=== PATIENT | male | born 1955 | race Caucasian/White ===

== ENCOUNTER 2020-05-19 14:54 | Inpatient (IN) | payer MEDICARE ==
[2020-05-19] MEDS ORDERED: FLOMAX0.4 MG PO (15:06)
[2020-05-19] MEDS ORDERED: MAG-OX 400 MG400 MG PO (15:06)
[2020-05-19] MEDS ORDERED: ASPIRIN81 MG PO (15:06)
[2020-05-19] MEDS ORDERED: TRAZODONE HCL50 MG PO (15:07)
[2020-05-19] MEDS ORDERED: PRAVACHOL40 MG PO (15:07)
[2020-05-19] MEDS ORDERED: POTASSIUM CHLO10 ME1 PO (15:08)
[2020-05-19] MEDS ORDERED: COZAAR100 MG PO (15:09)
[2020-05-19] MEDS ORDERED: HCTZ25 MG PO (15:09)
[2020-05-19] MEDS ORDERED: NORVASC10 MG PO (15:10)
[2020-05-19] MEDS ORDERED: NEURONTIN600 MG PO (15:11)
[2020-05-19] MEDS ORDERED: MOBIC7.5 MG PO (15:12)
[2020-05-19] MEDS ORDERED: PACERONE200 MG PO (15:12)
[2020-05-19] MEDS ORDERED: HYDRALAZINE HC100 MG PO (15:18)
[2020-05-19 15:53] VITALS: BP 152/92; BMI 44.4
[2020-05-19 17:30] LABS: BASOPHILS 0.9 % (0-2); EOSINOPHILS 5.3 % (0-7); HEMATOCRIT 42.1 % (42.0-54.0); HEMOGLOBIN 14.6 g/dL (13.5-17.5); IMMATURE GRANULOCYTES 0.3 % (0-5); LYMPHOCYTE ABS# 2.44 10x3/uL (1.32-3.57); LYMPHOCYTES 36.9 % (15-50); MCH 34.7 pg (26.0-34.0); MCHC 34.7 g/dL (31.0-37.0); MONOCYTES 13.7 % (2-11); NEUTROPHIL ABS# 2.84 10x3/uL (1.78-5.38); NEUTROPHILS 42.9 % (40-80); PLATELET COUNT 298 10x3/uL (130-400); RBC 4.21 10x6/uL (4.20-6.10); RDW 15.4 % (11.5-14.5); WBC 6.6 10x3/uL (4.8-10.8)
[2020-05-19 18:26] LABS: ALBUMIN 3.4 g/dL (3.4-5.0); ALKALINE PHOSPHATASE 110 U/L (30-120); ALT (SGPT) 63 U/L (10-68); BILIRUBIN - TOTAL 0.77 mg/dL (0.2-1.3); CALC OSMOLALITY 271 mosm/kg (275-300); CALCIUM 8.4 mg/dL (8.5-10.1); CHLORIDE - SERUM 103 mmol/L (98-107); CHOL - HDL RATIO 4.1 ratio (2.3-4.9); CHOLESTEROL, TOTAL 231 mg/dL (0-200); CREATININE - SERUM 0.7 mg/dL (0.6-1.3); GLUCOSE 72 mg/dL (74-106); HDL CHOLESTEROL 56 mg/dL (32-96); LDL CHOLESTEROL 157 mg/dL (0-100); LDL-HDL RATIO 2.8 ratio (1.5-3.5); POTASSIUM - SERUM 3.2 mmol/L (3.5-5.1); PROTEIN - SERUM 7.6 g/dL (6.4-8.2); SODIUM 138 mmol/L (136-145); THYROID STIMULATING HORMONE 0.75 uIU/mL (0.36-3.74); TRIGLYCERIDE 94 mg/dL (30-200); UREA NITROGEN 4 mg/dL (7-18); eGFR NON AFRICAN AMERICAN > 90 mL/min (90-120)
[2020-05-19 19:30] LABS: BILIRUBIN NEGATIVE (NEGATIVE); KETONE NEGATIVE (NEGATIVE); NITRITE NEGATIVE (NEGATIVE); UROBILINOGEN NORMAL mg/dL (< 2)
[2020-05-19 19:39] LABS: SQUAMOUS EPITHELIAL 0-5 HPF (0-4); WHITE CELLS - URINE 0-5 HPF (0-1)
[2020-05-19 19:40] LABS: BACTERIA FEW HPF (NONE SEEN)
--- NOTE | 2020-05-19 19:40 | NUR ---
NEW ADMIT TO DR SALTER ON [facility] FOR SUICIDAL IDEATION FROM [facility]. TRANSPORTED TO [facility] BY HIS NEPHEW, PRICILLA MEDRANO. UPON ARRIVAL TO [facility], PATIENT WAS COMPLIANT WITH ADMISSION ASSESSMENTS. CONSENTS TO TREAT SIGNED BY PATIENT, SARITHA MARCELA. CODE STATUS DISCUSSED WITH PATIENT AND HE IS A FULL CODE. PASSCODE GIVEN TO PATIENT. PATIENT STATES TO GIVE PASSCODE TO HIS NEPHEW AND SONS WHEN THEY CALL. PATIENT ORIENTED TO ROOM, UNIT, AND CALL [facility] SYSTEM.
[2020-05-19 20:00] VITALS: BP 135/87
[2020-05-19 20:13] LABS: UDS - AMPHET NEGATIVE QUAL (NEGATIVE); UDS - BARB NEGATIVE QUAL (NEGATIVE); UDS - BENZO NEGATIVE QUAL (NEGATIVE); UDS - COCAINE NEGATIVE QUAL (NEGATIVE); UDS - OPIATE NEGATIVE QUAL (NEGATIVE); UDS - PCP NEGATIVE QUAL (NEGATIVE); UDS - THC NEGATIVE QUAL (NEGATIVE)
--- NOTE | 2020-05-19 20:46 | NUR ---
RECEIVED IN HALLWAY OUTSIDE OF NURSES STATION. SOCIAL AT TIMES. CALM AND COOPERATIVE WITH CARE AND ASSESSMENT. NO STATEMENTS OF SELF HARM VOICED. STATE HE HAS A FAMILY AND GRANDCHILDREN HE NEEDS TO KEEP LIVING FOR. ENCOURAGE TO EXPRESS NEEDS. RESTING QUIETLY IN HIS ROOM AT THIS TIME. CONTINUE PLAN OF CARE.
--- NOTE | 2020-05-20 08:14 | PSY ---
PATIENT NAME:SARITHA MEDRANO MEDICAL RECORD: [id number] : 53 LOCATION:[id number] ADMISSION DATE: 05/19/20 ACCOUNT: [id number] PSYCHIATRIC EVALUATION DATE OF EVALUATION: 05/19/20 IDENTIFYING DATA: The patient is 65 years old and admitted to the hospital on a voluntary basis. CHIEF COMPLAINT: Suicidal ideation. HISTORY OF PRESENT ILLNESS: The patient is an alcoholic. He drinks at least 15 cans of beer a day along with several bottles of wine. He has done this for many years. When he gets drunk, he often feels tearful and suicidal. He says that the suicidal statements he made recently were because he was drunk and he is not drunk now and does not feel suicidal. He endorses numerous depressive symptoms. He denies that he would seek to harm himself or others and is wanting medical detoxification. PAST MEDICAL HISTORY: Significant for obstructive sleep apnea, COPD, hypertension and congestive heart failure. PAST PSYCHIATRIC HISTORY: Unclear. The patient says that he is on disability and has been on disability because he had a "nervous breakdown." Trying to elicit what might be the diagnosis is difficult, but it does sound as though he has had some serious psychiatric problems in the past. 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 He says that his building maintenance supervisor told him to falsify the quality of the welds and that if he did not do so that they are going to have him killed and his family killed. All of this is certainly not outside the realm of what is possible, but the manner in which he is talking about this sounds frankly at least in part delusional. He was hospitalized after this incident and tells me that he was on medications, but does not feel that he needs them anymore. FAMILY HISTORY: Unknown. ALLERGIES: SEROQUEL. CURRENT MEDICATIONS: Include potassium, hydrochlorothiazide, Mobic, aspirin, Cozaar, Norvasc, Flomax, folate, Desyrel, Neurontin, alprazolam, Pravachol, Cordarone, Librium and Nicoderm. SOCIAL HISTORY: The patient is single. He does have adult children and he is . He denies any legal entanglements. 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 As mentioned above, he drinks and smokes excessively and is currently smoking and 1-1/2 packages of cigarettes a day despite the fact that he has COPD, is morbidly obese and uses a CPAP machine. MENTAL STATUS EXAMINATION: The patient is awake, alert, oriented to person and place and somewhat to situation. He is mistaken about the date, but only moderately so. He believes that it is Monday, the May. His mood is euthymic. His affect appropriate. Thought processes are circumstantial. Memory, concentration and abstraction abilities are intact and he denies that he would seek to harm himself or others as well as psychotic symptoms. ASSESSMENT: AXIS I: Alcohol dependence. Rule out major depression. AXIS II: Deferred. AXIS III: Morbid obesity, chronic obstructive pulmonary disease, obstructive sleep apnea, benign prostatic hypertrophy, hyperlipidemia, hypertension, coronary artery disease, congestive heart failure. AXIS IV: Moderate. AXIS V: Global assessment of functioning is 45. PLAN: At this time, the patient is admitted to the hospital secondary to suicidal thoughts associated with substance use disorder. He will be medically detoxed, observed for depressive symptoms and started on antidepressant medication. His long-term prognosis is guarded and further investigation into his psychiatric history is necessary. Having an ALLERGY TO SEROQUEL is curious as Seroquel is not typically prescribed except for those with thought disorders or some sort of behavior problem. There is a great deal of information that needs to be gathered to put all of these pieces together, but at this time, I am going to watch him for alcohol withdrawal, start him on Librium and a transdermal Habitrol patch at his request. He states flatly he has no interest in stopping smoking despite his many health problems. TRANSINT:[id number] Voice Confirmation ID: [id number] DOCUMENT ID: [id number] BALDEMAR SALTER MD at 0814 CC: [id number] DICTATION DATE: 05/19/20 170 ACUTE SPECIALIST: 05/19/20 1720 ADM IN [facility] [address] [place] [address]
[2020-05-20 10:45] VITALS: BP 143/78
[2020-05-20 13:32] VITALS: Wt 131.1 kg
--- NOTE | 2020-05-20 17:54 | NUR ---
Rec'd patient this am sitting up in room. He is med compliant and takes his meds whole. He is A/O times 3 to person, place, and situation. He participated in group/activities today but sat to side of the group and listened and watched the activities. He has been calm, quiet, and cooperative with staff and other patients. His eyes are very reddened and he has edema to his feet and ankles. He denies any threats or ideations to suicide. He says he is here for his alcohol abuse. He has not displayed any adverse reactions is no alcohol usage.
[2020-05-20 20:00] VITALS: BP 123/72
--- NOTE | 2020-05-20 22:15 | NUR ---
RECEIVED PATIENT ON UNIT. SITTING CALMLY WITH HIS MASK ON. DENIES SUICIDIAL IDEATIONS. NO SIGNS OR SYMPTOMS OF ALCOHOL DETOX. HE IS ABLE TO MAKE ALL OF HIS NEEDS KNOWN. WILL FOLLOW POC
[2020-05-21 06:54] LABS: CALC OSMOLALITY 269 mosm/kg (275-300); CARBON DIOXIDE 29.8 mmol/L (21.0-32.0); CHLORIDE - SERUM 102 mmol/L (98-107); CREATININE - SERUM 0.6 mg/dL (0.6-1.3); GLUCOSE 96 mg/dL (74-106); POTASSIUM - SERUM 3.1 mmol/L (3.5-5.1); SODIUM 136 mmol/L (136-145); UREA NITROGEN 8 mg/dL (7-18); eGFR NON AFRICAN AMERICAN > 90 mL/min (90-120)
[2020-05-21 07:16] LABS: RAPID PLASMA REAGIN Non Reactive (Non Reactive)
--- NOTE | 2020-05-21 16:01 | PN ---
PATIENT:SARITHA MEDRANO MEDICAL RECORD: [id number] LOCATION:[facility] ADMISSION DATE: 05/19/20 PROGRESS NOTE DATE OF SERVICE: 05/20/2020 SUBJECTIVE: The patient's case was discussed with staff. He has no new complaint. OBJECTIVE: The patient is in good behavioral control. He is not showing evidence of alcohol withdrawal. ASSESSMENT: Major depression. PLAN: The patient's Librium is going to be reduced. I will continue to reduce it until it is discontinued and if he does not show withdrawal symptoms, he can be discharged. TRANSINT:[id number] Voice Confirmation ID: [id number] DOCUMENT ID: [id number] BALDEMAR SALTER MD at 1601 CC: [id number] DICTATION DATE: 05/20/20 1648 METAL RIVETER: 05/20/20 2332 ADM IN [facility] [address] [place] [id number]
--- NOTE | 2020-05-21 18:09 | NUR ---
Rec'd patient this am ambulatory in [facility]. He is A/O times [address], and situation. He denies any feeling for alcohol or denies side effects of Librium. He participated in group therapy today and was very active. He is med compliant.He denies any Suicidal ideations or thoughts.
[2020-05-21 20:00] VITALS: BP 124/76
--- NOTE | 2020-05-22 00:51 | NUR ---
B) Patient is alert and oriented to person, place and time, calm and cooperative, helpful with other patients, I) Administered scheduled medications as ordered, assisted with needs, R) Mediaction compliant, pleasnat and friendly, P) Continue plan of care,
[2020-05-22 07:24] LABS: CALC OSMOLALITY 266 mosm/kg (275-300); CALCIUM 9.3 mg/dL (8.5-10.1); CARBON DIOXIDE 27.6 mmol/L (21.0-32.0); CHLORIDE - SERUM 99 mmol/L (98-107); CREATININE - SERUM 0.7 mg/dL (0.6-1.3); GLUCOSE 96 mg/dL (74-106); SODIUM 134 mmol/L (136-145); UREA NITROGEN 9 mg/dL (7-18); eGFR NON AFRICAN AMERICAN > 90 mL/min (90-120)
[2020-05-22 07:27] LABS: POTASSIUM - SERUM 3.7 mmol/L (3.5-5.1)
[2020-05-22 09:10] VITALS: BP 123/65
[2020-05-22 10:55] VITALS: BP 123/85
--- NOTE | 2020-05-22 13:32 | NUR ---
Nutrition Follow-up: Diet: Regular PO intake: 100% x last 6 meals Last BM: 05/21/20. Wt: 283# (05/20/20) Meds noted: micro-k, magox, HCTZ Labs noted: Na 134(L) Recommend continue current diet. RD will follow-up 05/27/20.
--- NOTE | 2020-05-22 17:28 | NUR ---
RECEIVED THIS AM AMBULATORY IN [facility].IS ORIENTED X 3.VERY FRIENDLY,ENJOYS SOCIALIZING WITH STAFF AND PEERS.COMPLIANT WITH STAFF AND MEDS.DENIES SUICIDAL THOUGHTS.STATES"I NEVER THINK OF THAT UNLESS I AM VERY DRUNK."WILL CONTINUE WITH CURRENT PLAN OF CARE,MONITOR FOR CHANGES AND SAFETY.
[2020-05-22 20:00] VITALS: BP 103/67
--- NOTE | 2020-05-22 22:34 | NUR ---
PT IS ALERT AND ORIENTED X4. RECEIVED OUTSIDE THE NURSES STATION USING A WALKER TO ASSIST WITH AMBULATION. SOCIALIZING WITH STAFF AND PEERS. DENIES ANY SI. CALM AND COOPERATIVE. COMPLIANT WITH ALL MEDICATIONS. EASY TO REDIRECT.
[2020-05-23 07:38] VITALS: BP 102/67
--- NOTE | 2020-05-23 11:04 | NUR ---
The patient is awke and he is very talkative this am, he has been provided a recliner to ealevate his legs, the nurses, and nurse practitioner have explained to him that he needs to elevate his legs, but he will not elevate them and they continue to be swollen especially the left leg and foot. He asked about cheking himself out, but explained to him that since he came in with SI he is not able and our director social is trying to find counseling services for him so that he can have adequate resources at hand when he discharges. he verbalizes understanding and he is ok with the decision at this time. Provide prescribed meds. The patient is compliant with meds. He is becoming tired of sitting here and has asked to go smoke, but the hospital policy was explained to him and he said he understands. He is pleasant, but he wants to talk and tries to flirt a little by saying "How all of the nurses are so pretty." Provide prescribed meds. The patient is compliant with meds. Continue POC.
--- NOTE | 2020-05-23 17:53 | NUR ---
Patient denies any thoughts of suicide ideations
[2020-05-23 20:00] VITALS: BP 103/56
--- NOTE | 2020-05-23 21:38 | NUR ---
PT IS ALERT AND ORIENTED X4. RECEIVED IN THE HALLWAY OUTSIDE NURSES STATION SOCIALIZING WITH PEERS AND STAFF. COOPERATIVE WITH STAFF. ABLE TO VOICE NEEDS AND WANTS. DENIES SI. AMBULATES WITH A WALKER. MONITOR FOR SAFETY.
[2020-05-24 08:39] VITALS: BP 106/55
--- NOTE | 2020-05-24 17:03 | NUR ---
RECEIVED IN HALLWAY OUTSIDE OF NURSES STATION. SOCIALIZING WITH STAFF AND PEERS. CALM AND COOPERATIVE WITH CARE AND ASSESSMENT. DENIES SUICIDAL IDEATION. REDIRECT AND REORIENT NEEDED. EATING DINNER AT THIS TIME. CONTINUE PLAN OF CARE.
--- NOTE | 2020-05-24 20:26 | NUR ---
RECEIVED IN HALLWAY STANDING AT NURSES STAION TALKING TO STAFF AND PEERS. CALM AND COOPERATIVE WITH CARE AND ASSESSMENT. NO STATEMENTS OF SELF HARM VOICED. ENCOURAGE TO EXPRESS NEEDS. CONTINUES TO BE SOCIAL WITH STAFF AND PEERS. CONTINUE PLAN OF CARE.
--- NOTE | 2020-05-24 20:30 | NUR ---
RECEIVED IN BEDROOM. RESTING IN BED WITH EYES OPEN. CALM AND COOPERATIVE WITH CARE AND ASSESSMENT. NO STATEMENTS OF SELF HARM VOICED THIS EVENING. ENCOURAGE TO EXPRESS NEEDS. CONTINUES TO REST QUIETLY IN BED. CONTINUE PLAN OF CARE.
[2020-05-24 21:31] VITALS: BP 112/64
[2020-05-25 13:53] LABS: CALC OSMOLALITY 268 mosm/kg (275-300); CALCIUM 9.7 mg/dL (8.5-10.1); CARBON DIOXIDE 32.9 mmol/L (21.0-32.0); CHLORIDE - SERUM 96 mmol/L (98-107); POTASSIUM - SERUM 4.7 mmol/L (3.5-5.1); SODIUM 132 mmol/L (136-145); UREA NITROGEN 15 mg/dL (7-18); eGFR NON AFRICAN AMERICAN 79 mL/min (90-120)
[2020-05-25 13:54] LABS: GLUCOSE 152 mg/dL (74-106)
--- NOTE | 2020-05-25 17:30 | NUR ---
RECEIVED IN PATIENT ROOM. CALM AND COOPERATIVE WITH CARE AND ASSESSMENT. DENIES SUICIDAL IDEATION. REDIRECT AND REORIENT NEEDED. EATING DINNER AT THIS TIME. CONTINUE PLAN OF CARE.
--- NOTE | 2020-05-25 21:12 | NUR ---
RECEIVED IN HALLWAY. SITTING WITH PEERS SOCIALIZING. CALM AND COOPERATIVE WITH CARE AND ASSESSMENT. NO STATEMENTS OF SELF HARM VOICED. ENCOURAGE TO EXPRESS NEEDS. CONTINUES TO SOCAILIZE WITH PEERS. CONTINUE PLAN OF CARE.
[2020-05-25 22:28] VITALS: BP 104/62
[2020-05-26 08:00] VITALS: BP 97/55
--- NOTE | 2020-05-26 11:21 | NUR ---
mold loft worker spoke to patient's son, Rodri, to discuss discharge planning needs in patient's condition. Rodri wants patient to attend a residential alcohol treatment program. Patient does not want to go to a residential care program. mold loft worker explained that patient is his own person. mold loft worker also stated the discharge planning developing to support patient on an outpatient basis. Rodri was not content with outpatient discharge planning. mold loft worker then had an individual session with patient. mold loft worker explained that he was denied by to inpatient residential programs due to health reasons. mold loft worker sent referrals to [facility] in [place] and they are reviewing patient's file. [facility] does accept patient's insurance. Patient was pleased to know there was an outpatient service close to his home. mold loft worker also went over the importance of AA meetings and suggested 90 meetings in 90 days. Patient agreed to these terms. During individual session patient demonstrated anxiety and agitation. Patient did settle down after reviewing coping skills with social security specialist. mold loft worker will continue discharge planning per patient's request for outpatient.
--- NOTE | 2020-05-26 11:37 | NUR ---
RECEIVED IN PATIENT ROOM. SITTING ON SIDE OF BED. CALM AND COOPERATIVE WITH CARE AND ASSESSMENT. DENIES SUICIDAL IDEATION. REDIRECT AND REORIENT NEEDED. EATING LUNCH AT THIS TIME. CONTINUE PLAN OF CARE.
--- NOTE | 2020-05-26 20:01 | NUR ---
RECEIVEDIN HALLWAY. SITTING IN A CHAIR SOCIALIZING WITH PEERS. CALM AND COOPERATIVE WITH CARE AND ASSESSMENT. NO STATEMENTS OF SELF HARM VOICED. ENCOURAGE TO EXPRESS NEEDS. CONITUES TO SOCAILIZE WITH PEERS. CONTINUE PLAN OF CARE.
[2020-05-26 21:38] VITALS: BP 117/69
[2020-05-27 09:36] VITALS: BP 150/66
--- NOTE | 2020-05-27 11:18 | NUR ---
Patient stopped this nurse in the hallway and said "I need to make a phone call". I reinforced to him that there is a certain time for patient calls. He stated "well, I thought you might just let me" and I stated No, thats always been the time for calls. Patient then stated " well, when it stops raining, I'm gona go out and get me some firewood and build a fire out there" "that really was a joke" and laughed.
--- NOTE | 2020-05-27 12:10 | NUR ---
Nutrition Re-Assessment Diet: Regular PO intake: 100% Last BM: 05/26/20 Wt: 280.4# (05/24/20); Admit Wt: 283# (05/19/20) Meds noted: micro-k, magox, HCTZ Labs noted: Na 132(L), Glu 152(H) Estimated nutrition needs and nutrition diagnosis remain unchanged from initial nutrition assessment at this time. Patient is meeting nutrition goals at this time. Recommendations/Interventions: -Continue current diet. -RD will follow-up within 7 days.
--- NOTE | 2020-05-27 13:06 | NUR ---
Patient attempts again today to exchange food off of his plate to another patients. He was again reminded that exchanging of food was allowed.
--- NOTE | 2020-05-27 17:42 | NUR ---
Received patient sitting in hallway by the nurses station socializing with other peers. Calm and cooperative with assessment and care at this time. Awake and alert x4. Prescribed medications provided as ordered. Med compliant. Patient denies suicidal ideation at this time. Will continue plan of care.
[2020-05-27 19:30] VITALS: BP 103/64
--- NOTE | 2020-05-28 02:21 | NUR ---
B)RECEIVED PATIENT SITTING IN THE HALLWAY SOCIALIZING WITH PEERS. ALERT AND ORIENTED X4. RELATES IS HERE BECAUSE OF ALCOHOL. RELATES HE IS NOT GOING TO ANOTHER FACILITY FROM HERE UNTIL HIS GRAND BABY IS BORN BECAUSE HE TOLD HIS SON HE WOULD BE THERE FOR THE . DOES ADMIT TO HAVING A DRINKING PROBLEM. CALM AND COOPERATIVE WITH UNIT MILIEU. I)ADMINISTER MEDS AND MONITOR COMPLIANCE. OBTAIN VERBAL NO HARM CONTRACT. R)MED COMPLIANT. CONTRACTS VERBALLY FOR NO SELF. DENIES SI RELATING WHEN HE GETS TO DRINKING HE SOMETIMES WILL SAY THINGS HE DOESN'T MEAN. P)CONTINUE POC AND PROVIDE SAFE ENVIRONMENT.
[2020-05-28 06:22] LABS: CALC OSMOLALITY 269 mosm/kg (275-300); CALCIUM 9.5 mg/dL (8.5-10.1); CARBON DIOXIDE 31.2 mmol/L (21.0-32.0); CHLORIDE - SERUM 99 mmol/L (98-107); CREATININE - SERUM 0.9 mg/dL (0.6-1.3); GLUCOSE 121 mg/dL (74-106); POTASSIUM - SERUM 4.5 mmol/L (3.5-5.1); SODIUM 134 mmol/L (136-145); UREA NITROGEN 15 mg/dL (7-18); eGFR NON AFRICAN AMERICAN 90 mL/min (90-120)
[2020-05-28 08:15] VITALS: BP 111/65
--- NOTE | 2020-05-28 14:44 | NUR ---
pt notified nurse that he was having black stools all week long. nurse to report to dr. sorto.
--- NOTE | 2020-05-28 18:20 | NUR ---
PT PLAYING CHECKERS AT THIS TIME. PT IS COMPLIANT WITH MEDS, VITALS AND ASSESSMENTS. AMBUALTES WITH WALKER. DENIES SI. WILL CONT PLAN OF CARE.
[2020-05-28 20:00] VITALS: BP 116/61
--- NOTE | 2020-05-29 00:24 | NUR ---
PT IS ALERT AND ORIENTED X4. HE IS RECEIVED IN THE HALLWAY OUTSIDE THE NURSES STATION SOCIALIZING WITH PEERS. COMPLIANT WITH ALL MEDICATIONS. DENIES SI. RELATES THAT HE WOULD LIKE TO DO AN INPATIENT TREATMENT FACILITY BUT WANTS TO MAKE SURE THAT HE CAN LEAVE VOLUNTARILY. EASY TO REDIRECT. MONITOR FOR SAFETY.
[2020-05-29 09:30] VITALS: BP 104/65
--- NOTE | 2020-05-29 14:54 | NUR ---
ALERT, CALM, COOPERATIVE, DENIES S.I., PLEASANT MOOD, MEDS ADMIN PER ORDERS WITH COMPLETE MED COMPLIANCE NOTED. CONTINUE PLAN OF CARE OUTLINED.
--- NOTE | 2020-05-29 23:27 | NUR ---
RECEIVED PATIENT IN HALLWAY USING HIS PHONE TIME. HE IS PLEASANT, COOPERATIVE, FOLLOWS UNIT RULES. COMPLIANT WITH MEDS. NO ALCOHOL WITHDRAWL NOTED. DENIES SUICIDIAL IDEATIONS. WILL FOLLOW POC
[2020-05-30 00:03] VITALS: BP 149/59
[2020-05-30 09:11] VITALS: BP 119/66
--- NOTE | 2020-05-30 13:50 | NUR ---
At approx. 1340 staff heard a thump coming out of this patients room. The staff opened the door to find patient lying on the floor horizonally to the room with his head at the bathroom door and his feet at the side of the bed. He was lying on his back. The bedroom floor and the bathroom floor was wet with urine and patients clothes were also wet. There was a large amount of toliet tissue wet on the bathroom floor. Patients walker was next to patients head. I ask him what happened and he stated he had went to the bathroom and turned the shower on hot to make him some "hot tea" then "I guess the water leaked out of the shower and got the floor wet so I put all that toliet paper on the floor to soak up the water..."well, urine" and I guess my feet were wet and I just went down". Patient assessment completed. He denies any new pain.Skin w/d with all skin intact without open areas or bruises noted. No internal rotation to lower extremeties. Full ROM to upper and lower extremeties. He says his right hip is "sore" but when nurse applied pressure, patient did not respond as in pain. Encouraged patient to not run any water in shower unless a staff member is supervising and reminded him of emergency light in room. Also encouraged patient to wear non skid socks at all times when OOB and ambulating.
--- NOTE | 2020-05-30 18:05 | NUR ---
Rec'd patient this am up in a w/c sitting by the nurses desk. He is a/o times 3 to person, place, and situation. He is med compliant and takes meds whole. He attended social with the other patients and did very well with the other patients. He fell earilar but still does not have any pain or bruising. Dr. Shankar presents and orders rec'd for stools for occult blood. He denies any suicidal self harm or ideations today. HIs eyes are alot less reddened due to new eye drop usage. He has bessy. lower ext. edema. He is ambulatory for short walks using the rolling walker.There has been no alcohol withdrawal symtoms at this date.
[2020-05-30 20:00] VITALS: BP 103/55; BP 138/62
--- NOTE | 2020-05-30 22:13 | NUR ---
RECEIVED PATIENT IN THE HALLWAY, HE IS PLEASANT AND ABLE TO MAKE ALL OF HIS NEEDS KNOWN. HE IS NOT HAVING ANY WITHDRAWLS AT THIS TIME. HE DENIES SUICIDIAL IDEATIONS. WILL FOLLOW POC
[2020-05-31 09:53] VITALS: BP 100/52
--- NOTE | 2020-05-31 11:40 | NUR ---
RECEIVED PATIENT SENT IN THE HALLWAY BY THE NURSES STATION STATION. CALM AND COOPERATIVE WITH ASSESSMENT AT THIS TIME. PATIENT DENIES SUICIDAL IDEATION AT THIS TIME. PATIENT'S MOOD IS PLEASANT. PRESCRIBED MEDICATIONS PROVIDED ORDERED MED COMPLIANT. REDIRECT AND REORIENT NEEDED. WILL CONTINUE PLAN OF CARE.
--- NOTE | 2020-05-31 21:13 | NUR ---
RECEIVED PATIENT IN [place] SOCIALIZING WITH PEERS, HE SEEMS TO BECOMING INCREASINGLY CONFUSED, HE CAN NOT COMPREHEND OR REMEMBER TO USE THE CALL DAVIES EVEN AFTER BEING TOLD MULTIPLE TIMES, AND TO CALL FOR HIS EVERY NEED AND HE STILL REMAINS TO GET UP AND ATTEMPTS TO DO FOR HIMSELF. HE HAS BEEN GIVEN A URINAL, HE HAS NON-SKID SOCKS ON AND A CALL DAVIES WITHIN REACH. WILL FOLLOW POC
[2020-05-31 21:29] VITALS: BP 108/69
[2020-06-01 11:59] VITALS: BP 100/50
--- NOTE | 2020-06-01 12:00 | PN ---
PATIENT:SARITHA MEDRANO MEDICAL RECORD: [id number] LOCATION:[facility] ADMISSION DATE: 05/19/20 PROGRESS NOTE DATE OF SERVICE: 05/21/2020 The patient is 65 years old. He is admitted because of alcoholism and some suicidal statements. He no longer has any thoughts of harming himself. His vital signs have been good. I am going to reduce his Librium by one-third and will observe him for withdrawal. I would anticipate he could likely be transitioned to a lower level of care once medically detoxified and if things go well that should not take more than a few days. TRANSINT:[id number] Voice Confirmation ID: [id number] DOCUMENT ID: [id number] BALDEMAR SALTER MD at 1200 CC: [id number] DICTATION DATE: 05/21/20 172 CAR RETARDER OPERATOR: 05/21/203 ADM IN [place] [id number] [place] [address]
--- NOTE | 2020-06-01 15:58 | NUR ---
RECEIVED PATIENT SITTING IN CHAIR BY NURSES STATION. PATIENT IS SOCIALIZING WITH OTHER PEERS IN HALLWAY BY NURSES STATION. CALM AND COOPERATIVE WITH ASSESSMENT AT THIS TIME. PATIENT IS AWAKE AND ALERT X2. PATIENT'S CONFUSION LEVEL APPEARS TO BE INCREASED AT THIS TIME. PRESCRIBED MEDICATIONS PROVIDED ORDERED. MED COMPLIANT. REDIRECT AND REORIENT NEEDED. FALL PRECAUTIONS IN PLACE FOR SAFETY. WILL CONTINUE PLAN OF CARE.
[2020-06-01 22:10] VITALS: BP 120/69
--- NOTE | 2020-06-01 23:51 | NUR ---
PT IS ALERT AND ORIENTED SELF AND SITUATION. HE KNOWS HE IS IN A [facility]YCH UNIT BUT [facility]. HE RELATES THAT HIS POOPS ARENT BLACK ANYMORE. PLACED COLLECTION DEVICE IN TOILET AND EDUCATED HIM THAT WE NEED 3 STOOL SAMPLES. HE DOES ADMIT THAT HE HAS BEEN MORE CONFUSED LATELY. COMPLIANT WITH ALL MEDICATIONS. EASY TO REDIRECT.
[2020-06-02 08:00] VITALS: BP 101/52
--- NOTE | 2020-06-02 12:08 | NUR ---
RECEIVED PATIENT IN HALLWAY SOCIALIZING WITH PEERS. AWAKE AND ALERT X2 AT THIS TIME. CALM AND COOPERATIVE WITH ASSESSMENT AT THIS TIME. PRESCRIBED MEDICATIONS PROVIDED ORDERED. MED COMPLIANT. NO BEHAVIORS NOTED AT THIS TIME. REDIRECT AND REORIENT NEEDED. FALL PRECAUTIONS IN PLACE FOR SAFETY. WILL CONTINUE PLAN OF CARE.
--- NOTE | 2020-06-02 15:24 | PN ---
PATIENT:SARITHA MEDRANO MEDICAL RECORD: [id number] LOCATION:[facility] ADMISSION DATE: 05/19/20 PROGRESS NOTE DATE OF SERVICE: 06/01/2020 SUBJECTIVE: The patient's case was discussed with staff. He has no new complaint. OBJECTIVE: The patient denies intent to harm himself or others. He has had some alcohol withdrawal symptoms with the discontinuation of his Librium, but that seems to have resolved. ASSESSMENT: No change in diagnosis. PLAN: Current medicines have been reviewed and I anticipate he can be discharged soon. TRANSINT:[id number] Voice Confirmation ID: [id number] DOCUMENT ID: [id number] BALDEMAR SALTER MD at 1524 CC: [id number] DICTATION DATE: 06/01/20 165 ACADEMIC SUPPORT DIRECTOR: 06/02/20 0104 ADM IN [facility] [address] [place] [id number]
[2020-06-02 17:20] LABS: BASOPHILS 0.4 % (0-2); HEMATOCRIT 41.7 % (42.0-54.0); HEMOGLOBIN 13.8 g/dL (13.5-17.5); IMMATURE GRANULOCYTES 0.5 % (0-5); LYMPHOCYTE ABS# 2.83 10x3/uL (1.32-3.57); LYMPHOCYTES 26.6 % (15-50); MCH 34.2 pg (26.0-34.0); MCHC 33.1 g/dL (31.0-37.0); MCV 103.5 fL (80.0-100.0); MEAN PLATELET VOLUME 9.2 fL (7.4-10.4); NEUTROPHIL ABS# 5.26 10x3/uL (1.78-5.38); NEUTROPHILS 49.5 % (40-80); RBC 4.03 10x6/uL (4.20-6.10); RDW 14.2 % (11.5-14.5); WBC 10.6 10x3/uL (4.8-10.8)
[2020-06-02 17:24] LABS: CALC OSMOLALITY 272 mosm/kg (275-300); CALCIUM 9.8 mg/dL (8.5-10.1); CARBON DIOXIDE 29.4 mmol/L (21.0-32.0); CHLORIDE - SERUM 100 mmol/L (98-107); CREATININE - SERUM 0.8 mg/dL (0.6-1.3); GLUCOSE 121 mg/dL (74-106); POTASSIUM - SERUM 4.6 mmol/L (3.5-5.1); SODIUM 136 mmol/L (136-145); UREA NITROGEN 13 mg/dL (7-18); eGFR NON AFRICAN AMERICAN > 90 mL/min (90-120)
[2020-06-02 17:26] LABS: PLATELET COUNT 381 10x3/uL (130-400)
[2020-06-02 20:16] VITALS: BP 110/62
--- NOTE | 2020-06-02 22:00 | NUR ---
PATIENT RECEIVED SITTING IN CHAIR IN HALLWAY. PATIENT IS ALERT AND ORIENTED TO SELF AND SITUATION. CALM AND COOPERATIVE WITH ASSESSMENT. PATIENT IS COMPLIANT WITH MEDICATIONS. REDIRECT NEEDED. HE IS CONFUSED AT TIMES. REDIRECTS WITHOUT DIFFICULTY. MONITOR FOR SAFETY AND FOLLOW POC.
[2020-06-03 08:00] VITALS: BP 126/63
--- NOTE | 2020-06-03 09:54 | NUR ---
STAFF MEMBERS NOTED DURING ROUNDS PT TURNED OFF BED ALARM AND REMOVED BATTERIES. STAFF EDUCATED 2X ON IMPORTANCE ON BED ALARM AND NEED FOR BED ALARM TO PREVENT FALLS. PT VOICED UNDERSTANDING AT THIS TIME. CONTINUE TO MONITOR FALL PRECAUTIONS.
--- NOTE | 2020-06-03 15:18 | PN ---
PATIENT:SARITHA MEDRANO MEDICAL RECORD: [id number] LOCATION:[facility] ADMISSION DATE: 05/19/20 PROGRESS NOTE DATE OF SERVICE: 06/02/2020 SUBJECTIVE: The patient's case was discussed with staff. He has no new complaint. OBJECTIVE: The patient has no tremor today. He unfortunately is having some incontinence of bowel and bladder for reasons that are unclear. I am going to order some baseline labs to investigate. TRANSINT:[id number] Voice Confirmation ID: [id number] DOCUMENT ID: [id number] BALDEMAR SALTER MD at 1518 CC: [id number] DICTATION DATE: 06/02/20 1605 SHOPFITTER: 06/02/20 2327 ADM IN [place] [id number] [place] [address]
--- NOTE | 2020-06-03 15:49 | NUR ---
Nutrition Re-Assesssment Diet: Regular PO intake: 100% x all Last BM: 05/30/20 Wt: 281# (05/31/20); Admit Wt: 283# (05/19/20) Meds noted: micro-k, magox, HCTZ Labs noted: Glu 121(H) Estimated nutrition needs and nutrition diagnosis remain unchanged from initial nutrition assessment at this time. Patient is currently meeting nutrition goals at this time. Recommendations/Interventions: -Recommend continue current diet. Will continue to honor food preferences within diet restrictions. -RD will follow-up within 7 days.
--- NOTE | 2020-06-03 16:17 | NUR ---
nurse spoke with Jose Carrie in regards to d/c planning. nurse stated Dr. Dozier was allowing pt to D/C on 06/04/20. Nurse inquired if he wanted to set up a pickup time for 06/04. Mr. Butler "well i would have to drop of my kid at school and then come up with the gas money you know what I'm saying?" Nurse clarfied he would have to drop his child off then head this way. he stated yeah yall been saying everyday it would tomorrow i need to know for sure he is leaving cause i don't know what time i'll be there tomorrow. Just have him ready when i get there." Nurse stated she would clarfiy with the doctor but to call in the AM to let staff know when he is on the way." he did verbalize understanding.
[2020-06-03] MEDS ORDERED: WELLBUTRIN XL150 M1 PO (16:27)
[2020-06-03] MEDS ORDERED: VITAMIN D PO (16:27)
[2020-06-03] MEDS ORDERED: DONEPEZIL HCL5 MG PO (16:27)
[2020-06-03] MEDS ORDERED: AKWA TEARS15 ML EACH EYE (16:27)
[2020-06-03] MEDS ORDERED: FOLIC ACID1 MG PO (16:28)
--- NOTE | 2020-06-03 17:57 | NUR ---
Rec'd this am ambulationing in hallway using a walker. He is doing well. He takes his meds whole and is compliant. He most of the time is able to be directed or redirected. He is displaying a little Dementia signs. He can become a little agitated at times but can be redirected easily. He denies any suicidal ideations and self harm. One stool sample (2nd sample) obtained for occult blood taken to lab. He attended group therapy/activity today and participated with the group. He had one incontinent episode today.
[2020-06-03 20:00] VITALS: BP 102/53
--- NOTE | 2020-06-03 22:09 | NUR ---
RECEIVED PATIENT IN HIS ROOM THEN HE WALKED INTO THE HALLWAY AND SOCIALIZED WITH PEERS, ATE HIS SNACKS, HE IS PLEASANT, DENIES SUICIDIAL IDEATIONS. NO ALCOHOL WITHDRAWAL NOTED. WILL FOLLOW POC
[2020-06-04 08:54] VITALS: BP 98/53
--- NOTE | 2020-06-04 09:50 | NUR ---
PATIENT SITTING SOCIALZING WITH PEERS AT THIS TIME. PT IS CALM AND COOPERATIVE WITH STAFF AND PEERS. PT IS COMPLIANT WITH MEDS, VITALS AND ASSESSMENTS. PT IS ALERT TO PERSON, PLACE. PT IS D/C TO HOME WITH FAMILY THIS SHIFT. CONTS TO USE WALKER FOR AMBULATION. REDIRECT AND REORIENT NEEDED. WILL CONT PLAN OF CARE.
--- NOTE | 2020-06-04 10:01 | NUR ---
NURSE MADE APPT WITH PCP RICKY SHANKAR APRN ON MondayMay AT 0915. APPT MADE WITH [facility] ON Monday AT 1:00 P.M. NURSE EDUCATED PT ON APPTS. TYPED LETTER WITH PAPERCHART. PAPERWORK FAXED TO BOTH FACILITIES. PT BELONGINGS ALL ACCOUNTED FOR FROM ER LOCKBOX, NARC BOX AND PT ROOM. PT DRESSED AND SHOES DONNED.
--- NOTE | 2020-06-04 10:38 | NUR ---
PERSONAL BELONGINGS RETURNED TO PATIENT. PATIENT AND NEPHEW INSTRUCTED TO KEEP FOLLOWUP APPOINTMENTS SCHEDULED WITH HIS PCP AND [facility]. PATIENT AND NEPHEW VOICED UNDERSTANDING. PRESCRIPTIONS SENT ELECTRONICALLY TO PATIENT'S PHARMACY. HOME MED LIST PROVIDED TO NEPHEW AND EDUCATION COMPLETED WITH NEPHEW VOICING UNDERSTANDING. PATIENT ASSISTED TO FRONT ENTRANCE VIA W/C PER STAFF. NO S/S OF DISTRESS. PATIENT DENIES PAIN AND FURTHER NEEDS.
--- NOTE | 2020-06-04 13:37 | PN ---
PATIENT:SARITHA MEDRANO MEDICAL RECORD: [id number] LOCATION:[id number] ADMISSION DATE: 05/19/20 PROGRESS NOTE DATE OF SERVICE: 06/03/2020 SUBJECTIVE: The patient's case was discussed with staff. He has no new complaint. OBJECTIVE: The patient is wanting to be discharged. He has not been incontinent of urine today. ASSESSMENT: Alcohol-related dementia. PLAN: The patient will be transitioned out of the hospital tomorrow. Followup will be with Alcoholics Anonymous and his primary care physician. TRANSINT:[id number] Voice Confirmation ID: [id number] DOCUMENT ID: [id number] BALDEMAR SALTER MD at 1337 CC: [id number] DICTATION DATE: 06/03/20 162 CYLINDER BATCHER: 06/03/202053 DIS IN 06/04/20 [id number] [place] [address]
--- NOTE | 2020-06-08 14:06 | DS ---
PATIENT:SARITHA MEDRANO :53 MEDICAL RECORD: [id number] DISCHARGE SUMMARY ADMISSION DATE: 05/19/20 DISCHARGE DATE: 06/04/20 IDENTIFYING DATA: The patient is 65 years old and he was admitted to the hospital on a voluntary basis. CHIEF COMPLAINT: Suicidal thoughts. HISTORY OF PRESENT ILLNESS: The patient is an alcoholic and drinks at least 15 cans of beer a day with several bottles of wine. He has done this for many years. Often when he becomes drunk he becomes tearful and suicidal. Statements were made recently that he was not drunk and he is not drunk when I interviewed him and he is denying being suicidal, but not in a very convincing way. He endorses a lot of depressive symptoms. HOSPITAL COURSE: The patient was admitted to the hospital and medically detoxified. He was also treated with antidepressant medication. There were also complications regarding his lack of social support at home and his ability to function as he was walking with a walker and at times incontinent. After these issues were addressed as best as possible, it was also clear that he was not completely intact cognitively, but the level of impairment did not rise to a situation where he could be forced out of his home against his will and he was refusing to accept any other kind of placement despite efforts on the part of multiple staff members to convince him to do so. DISCHARGE DIAGNOSES: AXIS I: 1. Alcohol dependence. 2. Major depression, moderate severity, recurrent without psychotic features. 3. Alcohol-related dementia, mild. AXIS II: Deferred. AXIS III: Morbid obesity, chronic obstructive pulmonary disease, obstructive sleep apnea, benign prostatic hypertrophy, hyperlipidemia, hypertension, coronary artery disease, congestive heart failure. AXIS IV: Moderate. AXIS V: Global assessment of functioning is 50. PLAN: At the time of discharge, the patient was showing no evidence of alcohol withdrawal and no evidence of wanting to harm himself or others. He is agreeable to outpatient follow up with Alcoholics Anonymous and mental health followup at the local [facility] [place] [facility]. He has been set up in-home services as best that he qualifies for and he is again refusing any kind of placement. His long-term prognosis is going to be almost entirely contingent upon his abstinence from alcohol and he has been instructed not to drive, which he says he will follow, but he is doing so in a way that is not very convincing. TRANSINT:[id number] Voice Confirmation ID: [id number] DOCUMENT ID: [id number] DISCHARGE SUMMARY REPORT [id number] SARITHA MEDRANO, BALDEMAR MAXWELL at 1406 CC: [id number] DICTATION DATE: 06/04/201812 DRAFTER ELECTROMECHANICAL: 06/04/202201 DIS IN 06/04/20 [id number] [place] [id number]
== END 2020-06-04 10:38 | disposition home or self-care (01) | DRG 897 ==
LOC: D.PSYCH 14:54
PROVIDERS: Family Medicine; ADMIT Psychiatry & Neurology Psychiatry; ATTEND Psychiatry & Neurology Psychiatry
DX: F10.20 Alcohol dependence, uncomplicated (principal); R45.851 Suicidal ideations; Z68.41 Body mass index [BMI] 40.0-44.9, adult; Z20.822 Contact with and (suspected) exposure to COVID-19; F32.9 Major depressive disorder, single episode, unspecified; I10 Essential (primary) hypertension; J44.9 Chronic obstructive pulmonary disease, unspecified; F17.200 Nicotine dependence, unspecified, uncomplicated; I25.10 Atherosclerotic heart disease of native coronary artery without angina pectoris; E78.00 Pure hypercholesterolemia, unspecified; E78.5 Hyperlipidemia, unspecified; I48.0 Paroxysmal atrial fibrillation; E66.01 Morbid (severe) obesity due to excess calories; E87.6 Hypokalemia; N40.0 Benign prostatic hyperplasia without lower urinary tract symptoms; E83.42 Hypomagnesemia; R26.9 Unspecified abnormalities of gait and mobility; R60.0 Localized edema; E53.8 Deficiency of other specified B group vitamins